=== PATIENT | female | born 1950 | race Hispanic/Latino ===

== ENCOUNTER → 2018-09-23 | Outpatient (CLI) | payer MEDICARE ==
--- NOTE | 2018-09-27 08:37 | Diagnostic Imaging Report ---
#[id number] - MGSCRBIL #BILATERAL DIGITAL SCREENING MAMMOGRAM WITH CAD: 09/23/2018 CLINICAL: Routine screening. Comparison is made to exam dated: 06/15/2015 mammogram - [facility]. Current study contains 4 films. The tissue of both breasts is predominantly fatty. Current study was also evaluated with a Computer Aided Detection (CAD) system. There are benign calcifications in both breasts. No significant masses, calcifications, or other findings are seen in either breast. There has been no significant interval change. IMPRESSION: BENIGN There is no mammographic evidence of malignancy. A 1 year screening mammogram is recommended. The patient will be notified by letter of the results. Reggie rico/aniya:09/24/2018 15:07:49 Hospitality Host: Tequila MARLEY(Michael)(M), [facility] letter sent: Compared to Prior B9 Mammogram BI-RADS: 2 Benign
== END ==
LOC: MAMMO 11:23
PROVIDERS: ATTEND Obstetrics & Gynecology
DX: Z12.31 Encounter for screening mammogram for malignant neoplasm of breast (principal)
CPT/HCPCS: 77067

== ENCOUNTER → 2019-09-22 | Outpatient (CLI) | payer MEDICARE | LOC: MAMMO 10:21 | PROVIDERS: ATTEND Internal Medicine Clinical Cardiac Electrophysiology | DX: Z12.31 Encounter for screening mammogram for malignant neoplasm of breast (principal) | CPT/HCPCS: 77067 ==

== ENCOUNTER → 2020-01-04 | Outpatient (CLI) | payer MEDICARE ==
--- NOTE | 2020-01-04 11:26 | Diagnostic Imaging Report ---
Exam: Bone mineral density study. History: Osteoporosis screening, postmenopausal Comparison: None Discussion: Evaluation of the left hip and lumbar spine was performed utilizing DEXA Hologic bone densitometer. The study is technically adequate. The patient's fracture risk is compared to an age-matched control. The patient denies prior surgery/fracture of the spine, hips or forearm. Left hip femoral neck bone mineral density: 0.642 g/cm2, T-score is -2.0, Z-score is -0.3. Left hip total bone mineral density: 0.744 g/cm2, T-score is -1.6, Z-score is -0.3. Lumbar spine total bone mineral density: 0.917 gm/cm2, T-score is -1.2, Z-score is 0.8. Impression: 1. Bone mineralization by WHO Classification of the left hip is osteopenia, the fracture risk is moderate. 2. Bone mineralization by WHO Classification of the lumbar spine is osteopenia, the fracture risk is moderate. Recommendations: Medical evaluation for secondary causes of low bone mineral density may be appropriate. Correlate clinically for the necessity and timing of the next bone mineral density study. Signed by: Dr. Rhys Pate MD on 01/04/2020 11:24 AM
== END ==
LOC: DX 10:15
PROVIDERS: ATTEND Obstetrics & Gynecology
DX: Z13.820 Encounter for screening for osteoporosis (principal); N95.9 Unspecified menopausal and perimenopausal disorder
CPT/HCPCS: 77080

== ENCOUNTER → 2020-09-25 | Outpatient (CLI) | payer MEDICARE | LOC: MAMMO 14:28 | PROVIDERS: ATTEND Internal Medicine Clinical Cardiac Electrophysiology | DX: Z12.31 Encounter for screening mammogram for malignant neoplasm of breast (principal) | CPT/HCPCS: 77067 ==

== ENCOUNTER → 2021-09-11 | Outpatient (CLI) | payer MEDICARE ==
[~2021-09-11] MED LIST: IOPAMIDOL 370 MG/ML 200 ML INFUS..BTL INJ ONE; SODIUM CHLORIDE 0.9% 50ML 50 ML ONE
[2021-09-11 11:49] LABS: CREATININE, SERUM 0.78 mg/dL (0.57-1.11)
== END ==
LOC: CT 10:54
PROVIDERS: ATTEND Internal Medicine Endocrinology, Diabetes & Metabolism
DX: R19.04 Left lower quadrant abdominal swelling, mass and lump (principal)
CPT/HCPCS: 36415; 74177; 82565; 84520; Q9967

== ENCOUNTER → 2021-10-09 | Outpatient (CLI) | payer MEDICARE | LOC: MAMMO 11:23 | PROVIDERS: ATTEND Internal Medicine Endocrinology, Diabetes & Metabolism | DX: Z12.31 Encounter for screening mammogram for malignant neoplasm of breast (principal) | CPT/HCPCS: 77067 ==

== ENCOUNTER → 2021-11-21 | Outpatient (CLI) | payer MEDICARE | LOC: DX 09:51 | PROVIDERS: ATTEND Internal Medicine Endocrinology, Diabetes & Metabolism | DX: M85.88 Other specified disorders of bone density and structure, other site (principal) | CPT/HCPCS: 77080 ==

== ENCOUNTER → 2022-01-15 | Outpatient (CLI) | payer MEDICARE | LOC: US 08:52 | PROVIDERS: ATTEND Internal Medicine Endocrinology, Diabetes & Metabolism | DX: R31.1 Benign essential microscopic hematuria (principal) | CPT/HCPCS: 76770 ==